=== PATIENT | male | born 1965 | race Caucasian/White ===

== ENCOUNTER → 2017-12-03 06:46 | Outpatient (CLI) | payer OTHER, SELFPAY ==
--- NOTE | 2017-12-03 06:52 | NM_ITS ---
History and Indications: Hypertension, tobacco use, shortness of breath and fatigue Procedure: Patient exercised on Lobo protocol 6 metastases and 31 seconds, resting heart rate was 58% resting blood pressure 136/76, with exercise maximum heart rate achieved was 1 51 bpm which is greater than 85% of the maximum predicted heart rate and a blood pressure was 186/76. Test was started due to shortness of breath patient denied complained of chest pain. Agitated adequate exercise capacity and achieved 7mets of workload on treadmill, the blood pressure response to exercise was adequate. Electrocardiogram: Resting electrocardiogram showed sinus rhythm nonspecific ST-T changes, with exercise there is additional [address] segment depression noted from the baseline EKG, the EKG portion of the exercise Myoview is nondiagnostic baseline abnormal EKG. Cardiac stress and resting SPECT images: Cardiac stress and rest SPECT images were obtained using technetium 99 Myoview 10.9 mCi at rest and 31.0 mCi at stress, gated SPECT further analysis of segmental wall motion and calculation of the ejection fraction also done. Cardiac stress and rest images show uniform myocardial activity without any segmental perfusion abnormality, computer derived ejection fraction is 64% with no obvious regional wall motion abnormality, right ventricle is normal size and contractility. Conclusion: 1. The EKG portion of the exercise Myoview is nondiagnostic secondary to baseline abnormal EKG. Patient has adequate exercise capacity achieved 7mets of workload on treadmill, the blood pressure response to exercise was adequate, there was no exercise-induced chest discomfort. 2. No obvious scintigraphic evidence of reversible ischemia seen at this level of exercise, computer derived ejection fraction is 64% with no obvious regional wall motion abnormality, right ventricle is normal size and contractility.
--- NOTE | 2017-12-03 10:18 | HMH.ITSHM ---
lisonopril paxil aspirin
== END ==
PROVIDERS: Family Provider Internal Medicine Adolescent Medicine; PCP Internal Medicine Adolescent Medicine; Visit Provider Nurse Practitioner Family
DX: R06.02 Shortness of breath (principal)
CPT/HCPCS: 78452; 93017; A9502

== ENCOUNTER 2018-03-07 13:00 | Outpatient (RCR) | payer OTHER, SELFPAY | END 2018-03-29 13:33 | disposition home or self-care (01) | LOC: PT 13:00 | PROVIDERS: Family Provider Internal Medicine Adolescent Medicine; PCP Internal Medicine Adolescent Medicine; Visit Provider Nurse Practitioner Family | DX: M54.31 Sciatica, right side (principal) | CPT/HCPCS: 97012; 97110; 97163 ==

== ENCOUNTER → 2021-03-05 14:00 | Outpatient (CLI) | payer OTHER, SELFPAY ==
[2021-03-05 14:12] LABS: Basophils # 0.1 K/mm3 (0-0.2); Basophils % 1.7 % (0.1-2.0); Eosinophils # 0.4 K/mm3 (0.0-0.4); Eosinophils % 4.5 % (0.1-12.0); Hematocrit 47.9 % (42.0-52.0); Hemoglobin 16.4 g/dL (14.1-18.0); Lymphocytes # 3.3 K/mm3 (0.7-4.5); Lymphocytes % 39.8 % (10-50); Mean Corpuscular HGB Conc 34.3 g/dL (31.8-35.4); Mean Corpuscular Hemoglobin 31.2 pg (27.0-31.2); Mean Platelet Volume 8.2 fl (7.4-10.4); Monocytes # 0.5 K/mm3 (0.1-1.0); Monocytes % 6.1 % (1.7-9.3); Platelet Count 275 K/mm3 (142-424); Red Blood Count 5.26 M/mm3 (4.60-6.20); Red Cell Distribution Width 12.8 % (11.5-17.5); White Blood Count 8.3 K/mm3 (4.8-10.8)
[2021-03-05 14:16] LABS: Chloride 99 mmol/L (98-107)
[2021-03-05 14:17] LABS: Potassium 4.3 mmoL/L (3.5-5.1); Sodium 136 mmol/L (136-145)
[2021-03-05 14:19] LABS: Alanine Aminotransferase 74 U/L (12-78); Albumin Level 4.3 g/dl (3.5-5.0); Albumin/Globulin Ratio 1.5 (1.1-1.8); Alkaline Phosphatase 87 U/L (38-126); Anion Gap 13.3 mEq/L (5-15); Aspartate Amino Transferase 49 U/L (17-59); Bilirubin,Total 1.1 mg/dl (0.2-1.3); Blood Urea Nitrogen 18 mg/dl (9-20); Carbon Dioxide 28 mmol/L (22.0-30.0); Cholesterol 130 mg/dl (140-200); Estimated Glomerular Filt Rate 100 ml/min (>60); GFR (African American) 121 ML/MIN (>60); Globulin 2.8 g/dL (1.3-3.2); Total Protein,Serum 7.1 g/dl (6.3-8.2); Triglycerides 190 mg/dl (30-150); VLDL Cholesterol 38 mg/dL (0-40)
[2021-03-05 14:20] LABS: Calcium 9.2 mg/dl (8.4-10.2); Chol/HDL Ratio 4.2 (1-3.5); Glucose 150 mg/dl (74-100); HDL Cholesterol 31 mg/dl (40-60)
[2021-03-05 14:31] LABS: Direct LDL Cholesterol 72.19 mg/dL (100-129)
[2021-03-05 14:50] LABS: Thyroid Stimulating Hormone 2.75 uIU/mL (0.465-4.68)
[2021-03-06 17:14] LABS: Hemoglobin A1C 6.6 % (4.0-6.0)
== END ==
PROVIDERS: Internal Medicine Adolescent Medicine; Visit Provider Nurse Practitioner Family
DX: I10 Essential (primary) hypertension (principal); E78.2 Mixed hyperlipidemia; J44.9 Chronic obstructive pulmonary disease, unspecified; R73.9 Hyperglycemia, unspecified
CPT/HCPCS: 80053; 80061; 83036; 84443; 85025

== ENCOUNTER → 2021-03-17 06:48 | Outpatient (CLI) | payer OTHER, SELFPAY ==
--- NOTE | 2021-03-17 06:54 | CT_ITS ---
PROCEDURE: CT LUNG SCREENING CLINICAL INDICATION: SMOKER Current smoker 63 pack year smoking history Low dose ca screening COMPARISON: No exams were available for comparison TECHNIQUE: The exam was performed on a GE Light Speed [address] scanner using 2.90 mGy CTDI. A low dose helical CT CHEST was performed on a multi-detector scanner. All CT scans at the facility use one or more dose reduction, viz: automated exposure control, ma/kV adjustment per patient size (including targeted exams where dose is matched to indication, i.e. head), or iterative reconstruction technique. The LDCT was performed in a facility that meets the criteria for the screening program. Data regarding this exam was submitted to ACR which is an approved registry. The order for this exam indicates that it came as a result of a lung cancer screening counseling shard decision-making visit that included all the elements required of such a visit including smoking cessation. The radiologist interpreting this exam meets the CMS criteria for the LDCT lung cancer screening program. The exam is reported using the Lung-RADS classification scale and reported to the ACR registry. NOTE: This study was performed for the specific purposes of lung cancer screening and is not an alternative to diagnostic chest CT. RADIATION DOSE: CTDI vol(CT dose Index-volume) = 2.90mG DLP (Dose Length Product) = 118.55 mGcm FINDINGS: COPD changes with evidence of old granulomatous disease. No suspicious nodules apparent. OTHER FINDINGS: There are few mildly prominent mediastinal lymph nodes measuring up to 1.91.4 cm in the precarinal region with some calcification noted in subcarinal and right hilar nodes. Coronary artery calcifications are present. The liver appears enlarged measuring up to 27 cm AP. There are degenerative changes in the thoracic spine. IMPRESSION: Lung-RADS Category 1 Negative Follow-up: Continue annual screening with LDCT in 12 months Dictated by: Jarett Field MD 03/24/2021 09:57 Jarett Field MD in [place] 03/24/2021 09:57
== END ==
PROVIDERS: PCP Nurse Practitioner Family; Visit Provider Nurse Practitioner Family
DX: Z87.891 Personal history of nicotine dependence (principal); Z12.2 Encounter for screening for malignant neoplasm of respiratory organs
CPT/HCPCS: 71271

== ENCOUNTER → 2021-07-16 16:50 | Outpatient (CLI) | payer OTHER, SELFPAY ==
[2021-07-16 17:35] LABS: Anion Gap 15.1 mEq/L (5-15); Blood Urea Nitrogen 10 mg/dl (9-20); Calcium 9.7 mg/dl (8.4-10.2); Carbon Dioxide 29 mmol/L (22.0-30.0); Chloride 99 mmol/L (98-107); Chol/HDL Ratio 3.1 (1-3.5); Cholesterol 102 mg/dl (140-200); Estimated Glomerular Filt Rate 117 ml/min (>60); GFR (African American) 141 ML/MIN (>60); Glucose 131 mg/dl (74-100); HDL Cholesterol 33 mg/dl (40-60); Potassium 5.1 mmoL/L (3.5-5.1); Sodium 138 mmol/L (136-145); Triglycerides 143 mg/dl (30-150); VLDL Cholesterol 29 mg/dL (0-40)
[2021-07-16 18:24] LABS: Hemoglobin A1C 6.8 % (4.0-6.0)
== END ==
PROVIDERS: Visit Provider Nurse Practitioner Family
DX: E11.9 Type 2 diabetes mellitus without complications (principal); E78.2 Mixed hyperlipidemia
CPT/HCPCS: 80048; 80061; 83036

== ENCOUNTER 2021-08-11 10:31 | Observation (INO) | payer OTHER, SELFPAY ==
[2021-08-11] VITALS (19 sets, daily range): BP systolic 94–169; BP diastolic 49–100; PULSE 78–115; RESP 20–24; TEMP 36.6–37.1; O2SAT 86–97; BMI 38.0; BMI 38.2
--- NOTE | 2021-08-11 | IR_ITS ---
APPROVED REPORT Patient Location: Emergent Acid Painter: SALVADOR Pedro RT (R) PROCEDURES Left heart catheterization Left ventriculogram Selective coronary angiogram INDICATION Acute non-ST elevation myocardial infarction Informed consent was obtained prior to the procedure. COMPLICATIONS NONE Estimated Blood Loss: LESS THAN 10 ML TECHNIQUE One percent lidocaine used to anesthetize the right anterior aspect of the wrist. The right radial artery was accessed via the Seldinger technique. A 6 Irish sheath was placed in the right radial artery. 2.5 mg of verapamil, 800 mcg of nitroglycerin, 1mg Lidocaine and 5000 U Heparin were given through the arterial sheath. The Poppa 1 catheter was also used to perform left heart catheterization, left ventriculogram and selective coronary angiogram. At the end of the procedure the sheath was removed good hemostasis was achieved using Traclet band, patient was transferred to the postop holding area in stable condition. ANGIOGRAPHIC RESULTS The left main artery Normal The left anterior descending artery Normal The circumflex artery Normal The right coronary artery Dominant mild luminal irregularities 10% The TOMPKINS ventriculogram reveals Hyperdynamic 70 to 75% with mild to moderate apical hokum The left ventricular end-diastolic pressure Severely elevated at 40 mmHg IMPRESSION Nonflow limiting coronary disease Apical hypertrophic obstructive cardiomyopathy Severely elevated LVEDP PLAN 1. Recommend transthoracic echocardiogram to better delineate left ventricle and consider LOLA based on patient's body habitus 2. Treat diastolic dysfunction with diuretics and weight loss 3. Recommend sleep study 4. Recommend pulmonary CTA to evaluate for possible pulmonary embolism 5. Risk factor modification Electronically signed by : El Mccullough MD 08/11/2021 12:55:10
--- NOTE | 2021-08-11 11:41 | HMH.EDGENADL ---
ED Disposition Clinical Impression: NSTEMI (non-ST elevated myocardial infarction), Strep pharyngitis Disposition: Admitted As Inpatient Condition on Discharge: Good Referrals: Provider,Referral, [Primary Care Provider] - - Critical Care Critical Care Time: No Attestation: On 08/11/21, the high probability of a clinically significant, sudden or life threatening deterioration of the following system(s) required my full and direct attention, intervention and personal management. The time I documented below is in addition to time spent performing reported procedures but includes the following listed in this critical care notation. Medical Decision Making - Medical Records Medical records reviewed: Yes: I reviewed the patient's medical records. - Mukul Inquiry Pt receiving controlled substance: No Vital Signs: 08/11/21 10:31 Pulse Rate [Left Radial] 115 H Respiratory Rate 20 Blood Pressure [Right Arm] 156/79 H Blood Pressure Mean [Right Arm] 104 Blood Pressure Source [Right Arm] Automatic Cuff Blood Pressure Position [Right Arm] Sitting 02 Sat by Pulse Oximetry 95 Oxygen Delivery Method Room Air Orders (Tests/Meds): ORDERS Category Date Time Status Rapid PCR Covid and Flu A/B Stat Lab 08/11/21 10:33 Ordered - ZEINA Score for Non-Stemi Age of Patient: 50-59 years old Heart Rate: 110-149 bpm Systolic Blood Pressure: 140-159 mmHg Serum Creatinine: <0.40 mg/dl CHF Killip Class: I-No CHF Other Risk Factors: ST Segment Deviation Non-Stemi Risk Score: 118 Risk Stratification: 109-140 = Intermediate Ri Medical Decision Narrative: 56-year-old male presented to the emergency department with some chest discomfort. History of CAD. Find consistent with unstable angina. Patient is being prepared for transfer to the catheterization lab for intervention. Admit to the hospital post catheterization. General Adult HPI - General Chief complaint: Recheck/Abnormal Lab/Rx Stated complaint: heart cath Time Seen by Provider: 08/11/21 10:40 Mode of Arrival: Ambulatory Limitations: No Limitations Description of Symptoms (Recalled from ER Triage Doc. by RN): pt sent over from [facility] for further evaluation by cardiology. - History of Present Illness HPI narrative: 56-year-old male presented to the emergency department transferred in from [facility]. The patient is a longstanding history of CAD. Complaining some chest pain over the last few days. Patient was found to have a NSTEMI. Dr. Mccullough is his primary transitional kindergarten teacher was notified. Patient is had persistent unstable angina and does require heart catheterization. Patient states that his pain is slightly improved, however still there. Also complained of sore throat. Denies any headache or change in vision. No focal weakness. No abdominal pain or vomiting. - Related Data Allergies Allergy/AdvReac Type Severity Reaction Status Date / Time PENICILLIN Allergy Intermediate I-HIVES Uncoded 09/14/17 15:07 [facility] History - Hepatitis A Screen Drug use history?: No High risk sexual behaviors?: No History of sexually transmitted infection?: No Currently employed?: No Childcare worker?: No Do you have indoor plumbing?: Yes Do you have electricity?: Yes Attestation statement:: This patient has been screened for Hepatitis A risk factors. I have reviewed the patient's past medical history: Yes ROS Obtained: Yes All systems reviewed & no additional complaints - Constitutional Constitutional: Denies chills, Denies fever(s) - ENT Ears, Nose, Mouth, and Throat: Reports sore throat - Cardiovascular Cardiovascular: Reports chest pain - Respiratory Respiratory: Denies dyspnea - Gastrointestinal Gastrointestingal: Denies: vomiting - Musculoskeletal Musculoskeletal: Denies joint pain, Denies joint swelling - Integumentary/Breasts Skin/Breast: Denies rash - Neurologic Neurologic: Denies headache(s) Physical Exam
[2021-08-11 11:56] LABS: Coronavirus 19, PCR Not Detected (NotDetected); Influenza A, PCR Not Detected (NotDetected); Influenza B, PCR Not Detected (NotDetected)
--- NOTE | 2021-08-11 12:55 | CT_ITS ---
PROCEDURE: CT ANGIO CHEST PE PROTOCOL CLINCIAL INDICATION: PULMONARY ARTERY CTA COMPARISON: CT CT LUNG SCREENING from 03/17/2021 TECHNIQUE: IV Contrast: 70ML Isovue 370 Axial images obtained with sagittal and coronal reformats. All CT scans at the facility use one or more dose reduction, viz: automated exposure control, ma/kV adjustment per patient size (including targeted exams where dose is matched to indication, i.e. head), or iterative reconstruction technique. FINDINGS: HEART AND MEDIASTINAL STRUCTURES: Peripheral pulmonary artery opacification is somewhat less than optimal due to motion artifact and bolus timing. No central pulmonary embolus apparent. Scattered mildly prominent mediastinal lymph nodes not significantly changed LUNGS AND PLEURAL SPACES: No lobar consolidation or collapse. Motion artifact obscures fine detail. There is evidence of old granulomatous disease. Scattered areas of scarring. BONY STRUCTURES: There are degenerative changes in the thoracic spine with prominent osteophytes and DISH of the mid thoracic spine. Scattered areas of sclerosis involves the T5, T6, T7, T8, T9, and T10 vertebral bodies. This is of uncertain etiology possibly hemangiomatous involvement versus posttraumatic changes. Nonemergent MRI of the thoracic spine may provide further evaluation. UPPER ABDOMEN: Fatty liver. Scattered small celiac and portal nodes ADDITIONAL FINDINGS: No other significant abnormalities. IMPRESSION: 1. No large or central pulmonary embolus evident. Peripheral pulmonary artery opacification is somewhat less than optimal due to motion artifact and bolus timing. 2. Degenerative changes of the thoracic spine with multiple vertebral body areas of sclerosis and lucency etiology indeterminate possibly due to hemangioma involvement. Nonemergent MRI of the thoracic spine without and with contrast may provide further evaluation. DISH of the thoracic spine. Dictated by: Jarett Field MD 08/11/2021 14:21 Jarett Field MD in [place] 08/11/2021 14:21
--- NOTE | 2021-08-11 13:28 | SUR.PHASEII ---
pt to CT per crystal before going to 2nd floor. pt stable.
--- NOTE | 2021-08-11 13:43 | P.CONPHA_ITS ---
[facility] Pharmacy VTE Monitoring - Patient Demographics Admission date: 08/11/21 Report Date: 08/11/21 Time: 13:43 Allergies/Adverse Reactions: Patient Allergies PENICILLIN Allergy (Intermediate, Uncoded 09/14/17 15:07) I-HIVES Height: 1.75 m Weight: 117.027 kg Patient Problems: Current Active Problems NSTEMI (non-ST elevated myocardial infarction) (Acute) Strep pharyngitis (Acute) - VTE Risk Clinical Trial Participant: No - Prophylaxis VTE Prophylaxis Ordered?: Yes Types of VTE Prophylaxis: TEDS Knee High
--- NOTE | 2021-08-11 16:59 | HMH.HPDC ---
General - General Admission date:: 08/11/21 Discharge date: 08/11/21 *Admission Date: 08/11/21 *Chief complaint: Chest pain/shortness of air *History of present illness: 56-year-old white male with diabetes, hypertension and diastolic CHF who went to the [facility] emergency room with a feeling of coughing, shortness of air and sore throat. Found to have a positive strep test, but was also found to have elevated cardiac enzymes and was diagnosed with a non-STEMI, transferred to the [facility] where he was taken to the Bench Assembl[facility] Operator earlier today. Bench Assembler [facility] results are noted in his hospital course. [facility] History I have reviewed the patient's past medical history: Yes Medical History: Reports:: Congestive Heart Failure, Chronic Obstructive Pulmonary Disease (COPD), Diabetes Mellitus Type 2, Heart Murmur, Hypertension *Have you ever received a pneumonia vaccine?: No *Have you received a flu vaccine this season?: No - *Social History Last grade of school completed: High school graduate Smoking Status: Current some day smoker Tobacco Type: cigarettes Alcohol Intake: never *Occupational Status:: employed *Travel in the last 8 weeks: None Family Hx:: No significant family history Review of Systems - Review of Systems Review of systems:: pertinent systems reviewed and negative unless documented below - *Neurologic Denies headache(s) Exam Vital signs and Labs for Last 24 Hours: Temp Pulse Resp BP Pulse Ox 98.2 F 103 H 20 140/75 94 L 08/11/21 13:40 08/11/21 13:40 08/11/21 13:40 08/11/21 13:40 08/11/21 13:40 Laboratory Results - last 24 hr 08/11/21 11:45: SARS-CoV-2 (PCR) Not detected, Influenza A Untype (PCR) Not detected, Influenza Type B (PCR) Not detected I & O for Last 24 hours: Intake & Output 08/09/21 08/10/21 08/11/21 08/12/21 11:59 11:59 11:59 11:59 Weight 258 lb 258 lb 0.006 oz - Constitutional no acute distress - *Routine HEENT Exam Head: Present: normocephalic Eye: Present: EOMI, PERRL ENT: Present: mucous membranes moist Comments: Red throat noted, tender cervical lymph nodes - *Routine Neck Exam Present: supple. Absent: lymphadenopathy - *Routine Respiratory Exam Present: CTA bilaterally - *Routine Cardiovascular Exam Present: RRR - *Routine Abdominal Exam Present: soft, normoactive bowel sounds. Absent: tenderness - *Routine Rectal Exam Rectal:: deferred - *Routine Genitalia Exam Genitalia:: deferred - *Routine Extremities Exam Absent: cyanosis, clubbing, edema - *Routine Skin Exam Present: warm. Absent: rash - *Routine Neurological Exam Present: alert, oriented X3 Hospital Course Hospital Course: Patient was admitted observation, underwent left heart catheterization: Results below: ANGIOGRAPHIC RESULTS The left main artery Normal The left anterior descending artery Normal The circumflex artery Normal The right coronary artery Dominant mild luminal irregularities 10% The TOMPKINS ventriculogram reveals Hyperdynamic 70 to 75% with mild to moderate apical hokum The left ventricular end-diastolic pressure Severely elevated at 40 mmHg IMPRESSION Nonflow limiting coronary disease Apical hypertrophic obstructive cardiomyopathy Severely elevated LVEDP PLAN 1. Recommend transthoracic echocardiogram to better delineate left ventricle and consider LOLA based on patient's body habitus 2. Treat diastolic dysfunction with diuretics and weight loss 3. Recommend sleep study 4. Recommend pulmonary CTA to evaluate for possible pulmonary embolism 5. Risk factor modification Patient did well post cath. CTA was negative for PE. He feels good this now, wishes to be discharged home. Is willing to come in for short-term follow-up. Plan will be to discharge home with clindamycin for strep throat given his allergy profile, short-term follow-up in 2 days, will start Lasix based on cardiology recommendations. Results Lab
== END 2021-08-11 18:14 | disposition home or self-care (01) ==
LOC: ER 11:44 → 2ND 17:05
PROVIDERS: Internal Medicine; Admitting Provider Family Medicine; Emergency Provider Emergency Medicine; Visit Provider Family Medicine
DX: I21.4 Non-ST elevation (NSTEMI) myocardial infarction (principal); I50.30 Unspecified diastolic (congestive) heart failure; I11.0 Hypertensive heart disease with heart failure; F17.210 Nicotine dependence, cigarettes, uncomplicated; J02.0 Streptococcal pharyngitis; I42.9 Cardiomyopathy, unspecified
CPT/HCPCS: 71275; 93458; 99152; 99283; C1725; C1760; C1769; C9803; G0378; J1644; Q9967; U0003; U0005

== ENCOUNTER 2021-08-17 11:30 | Emergency (ER) | payer OTHER, SELFPAY ==
[2021-08-17] VITALS (7 sets, daily range): BP systolic 102–130; BP diastolic 60–68; PULSE 64–104; RESP 16–26; TEMP 36.9–37; O2SAT 94–98; BMI 36.9; BMI 22.1
--- NOTE | 2021-08-17 11:30 | ECG_ITS ---
APPROVED REPORT Exam: Resting ECG HR:83 bpm ECG Measurements Heart Rate 83 AXES PA 166 P 53 QRSd 72 QRS 69 QT 318 T 31 QTc 373 Conclusion Normal sinus rhythm Nonspecific T wave abnormality Abnormal ECG Electronically signed by : Leland New MD 08/17/2021 15:34:26
--- NOTE | 2021-08-17 11:39 | XR_ITS ---
PROCEDURE INFORMATION: Exam: XR Chest Exam date and time: 08/17/2021 11:39 AM Age: 56 years old Clinical indication: Cough TECHNIQUE: Imaging protocol: XR of the chest. Views: 1 view. COMPARISON: CT ANGIO CHEST PE PROTOCOL 08/11/2021 1:29 PM FINDINGS: Lungs: No focal right lung consolidation; left lower lobe is obscured which appeared to be due to an epicardial fat pad on the CT of 08/11/2021. Central bronchial wall thickening. Pleural spaces: No right pleural effusion. Left costophrenic sulcus is obscured. Heart/Mediastinum: No significant enlargement of the cardiomediastinal silhouette. Bones/joints: Degeneration is seen in the right shoulder. IMPRESSION: No acute findings although left lower lobe is obscured; probably by an epicardial fat pad although lateral chest x-ray would be helpful for further evaluation.
--- NOTE | 2021-08-17 11:42 | HMH.EDGENADL ---
ED Disposition Clinical Impression: Shortness of breath, Anxiety state Disposition: Home, Self-Care Condition on Discharge: Good Instructions: DI for Shortness of Breath, DI for Anxiety -- Adult Additional Instructions: See Dr. New in his [place] office tomorrow at noon. Take Klonopin as needed for anxiety. Additional instructions for SHORTNESS OF BREATH: See your physician as soon as possible for further evaluation. Return immediately if worsening shortness of breath or if vomiting, chest pain, fever, coughing of blood, or passing out. Additional instructions for CONTROLLED SUBSTANCES: You have been prescribed a medication that is a controlled substance. Controlled substances include pain medications known as opiates and sedative nerve medications known as benzodiazepines. Tramadol, fioricet, and gabapentin are also controlled substances. Some common opiates include: Codeine (such as Tylenol #3) Hydrocodone (Vicodin, Lortab, Lorcet, [place]) Oxycodone (Percocet, Percodan, Oxycodone, Oxy IR) Some common benzodiazepines include: Diazepam (Valium) Lorazepam (Ativan) Alprazolam (Xanax) Clonazepam (Klonopin) Oxazepam (Serax) All of these controlled substances are highly addictive and frequently abused. Misuse can and frequently does lead to addiction as well as overdose and . Medication should be stored in a locked cabinet or other secure storage unit. Do not store the medication in a motor vehicle. Short term supplies, 3 days or less, are prescribed because of the highly addictive nature of the medication. Any of the controlled substance medication NOT taken should be disposed of properly and NOT SAVED. The recommended method of disposing of unused medications is: Place the medicines in a sealable plastic bag. If the medicine is a solid, crush it or add water to dissolve it. Add something undesirable (cat litter, coffee grounds, etc.) Dispose of sealed bag in household trash Do not flush or pour unused medicines down a sink or drain. Controlled substances should not be shared, given away or sold. Because of the addictive nature and frequent abuse, these medications are sometimes stolen. These medications should be kept in a safe place where they cannot be stolen. Do not keep them in your car or purse. Lost or stolen prescriptions for controlled substances WILL NOT BE REFILLED in this emergency department, regardless of whether a police report was filed. Prescriptions: clonazePAM [Klonopin] 1 mg PO Q8HP PRN #3 tablet PRN Reason: Anxiety Transmission Status: Sent to [id number] Referrals: Provider,Referral, [Primary Care Provider] - - Critical Care Critical Care Time: No Attestation: On , the high probability of a clinically significant, sudden or life threatening deterioration of the following system(s) required my full and direct attention, intervention and personal management. The time I documented below is in addition to time spent performing reported procedures but includes the following listed in this critical care notation. Medical Decision Making - Medical Records Medical records reviewed: Yes: I reviewed the patient's medical records. MR Comment: Reviewed hospital records from visit on 08/11/2021. Reviewed angiogram report, CT angiogram of chest. See below. No EKGs could be found from that visit. No troponin levels found. Records requested from [facility]. Obtained emergency department records from [facility]. EKG is unchanged from that visit. His reported troponin was 89.3 with a normal of 75. - Mukul Inquiry Pt receiving controlled substance: No Vital Signs: 08/17/21 11:36 08/17/21 12:31 08/17/21 13:01 Temperature 98.6 F Temperature Source Oral Pulse Rate 101 H 97 H Pulse Rate [Radial] 104 H Respiratory Rate 26 H 22 24 Blood Pressure 124/60 130/66 Blood Pressure [Right Radial Artery] 107/65 L
[2021-08-17 12:07] LABS: Coronavirus 19, PCR Not Detected (NotDetected); Influenza A, PCR Not Detected (NotDetected); Influenza B, PCR Not Detected (NotDetected)
[2021-08-17 12:10] LABS: Basophils # 0.1 K/mm3 (0-0.2); Basophils % 1.6 % (0.1-2.0); Eosinophils # 0.3 K/mm3 (0.0-0.4); Eosinophils % 3.4 % (0.1-12.0); Hematocrit 50.2 % (42.0-52.0); Hemoglobin 17.1 g/dL (14.1-18.0); Lymphocytes % 36.3 % (10-50); Mean Corpuscular HGB Conc 34.1 g/dL (31.8-35.4); Mean Corpuscular Hemoglobin 31.9 pg (27.0-31.2); Mean Corpuscular Volume 93.5 fl (80-94); Mean Platelet Volume 8.1 fl (7.4-10.4); Monocytes # 0.4 K/mm3 (0.1-1.0); Monocytes % 5.1 % (1.7-9.3); Neutrophils # 4.4 K/mm3 (1.8-7.8); Neutrophils % 53.5 % (37.0-80.0); Platelet Count 353 K/mm3 (142-424); Red Blood Count 5.37 M/mm3 (4.60-6.20); Red Cell Distribution Width 12.8 % (11.5-17.5); White Blood Count 8.2 K/mm3 (4.8-10.8)
[2021-08-17 12:29] LABS: Anion Gap 11.8 mEq/L (5-15); Blood Urea Nitrogen 15 mg/dl (9-20); Calcium 9.6 mg/dl (8.4-10.2); Carbon Dioxide 33 mmol/L (22.0-30.0); Chloride 97 mmol/L (98-107); Creatinine Clearance Estimated 113 mL/min (50-200); Estimated Glomerular Filt Rate 117 ml/min (>60); GFR (African American) 141 ML/MIN (>60); Glucose 178 mg/dl (74-100); Potassium 3.8 mmoL/L (3.5-5.1); Sodium 138 mmol/L (136-145)
[2021-08-17 12:42] LABS: NT Pro Brain Natriuretic Pep. 14.4 pg/mL (0-125)
--- NOTE | 2021-08-17 12:49 | CT_ITS ---
PROCEDURE INFORMATION: Exam: CTA Chest With Contrast Exam date and time: 08/17/2021 12:49 PM Age: 56 years old Clinical indication: Shortness of breath; Additional info: SOA, elev d-dimer TECHNIQUE: Imaging protocol: Computed tomographic angiography of the chest with contrast. 3D rendering (Not supervised by radiologist): MIP and/or 3D reconstructed images were created by the technologist. Radiation optimization: All CT scans at this facility use at least one of these dose optimization techniques: automated exposure control; mA and/or kV adjustment per patient size (includes targeted exams where dose is matched to clinical indication); or iterative reconstruction. Contrast material: ISOVUE; Contrast volume: 70 ml; Contrast route: INTRAVENOUS (IV); COMPARISON: CT ANGIO CHEST PE PROTOCOL 08/11/2021 1:29 PM FINDINGS: Pulmonary arteries: There is no evidence of filling defects within the pulmonary arterial circulation to suggest pulmonary embolism. Aorta: No aneurysmal dilatation of thoracic aorta or dissection. There is minimal atheromatous plaque. Lungs: There is central bronchial wall thickening. No lung consolidation. Pleural spaces: No pneumothorax. No pleural effusion. Heart: No cardiomegaly or pericardial effusion. There is a large epicardial fat pad. Lymph nodes: There are multiple mediastinal and hilar lymph nodes largest is pretracheal measuring 1.8 cm. Several contain calcifications therefore likely old granulomatous disease. Additionally there are calcified lung parenchymal granulomas largest in the right lower lobe. There are calcified granulomas in the liver and spleen as well. Liver: There is hepatomegaly with right lobe measuring 23 cm. Bones/joints: Spondylosis in the thoracic spine with multilevel fusion. Soft tissues: Large epicardial fat pad. IMPRESSION: No acute findings. No evidence of pulmonary emboli or pneumonia.
[2021-08-17 12:53] LABS: Troponin I < 0.01 ng/ml (0.00-0.034)
[2021-08-17 13:52] LABS: Adenovirus,PCR Not Detected (NotDetected); Bordetella Pertussis Not Detected (NotDetected); Chlamydophila Pneumoniae, PCR Not Detected (NotDetected); Coronavirus 19, PCR Not Detected (NotDetected); Coronavirus 229E Not Detected (NotDetected); Coronavirus NL63 Not Detected (NotDetected); Coronavirus OC43 Not Detected (NotDetected); Coronovirus HKU1,PCR Not Detected (NotDetected); Human Metapneumovirus Not Detected (NotDetected); Influenza A, PCR Not Detected (NotDetected); Influenza AH1, 2009 Not Detected (NotDetected); Influenza AH1, PCR Not Detected (NotDetected); Influenza AH3,PCR Not Detected (NotDetected); Influenza B, PCR Not Detected (NotDetected); Mycoplasma Pneumoniae, PCR Not Detected (NotDetected); Parainfluenza 1, PCR Not Detected (NotDetected); Parainfluenza 2, PCR Not Detected (NotDetected); Parainfluenza 3, PCR Not Detected (NotDetected); Parainfluenza 4, PCR Not Detected (NotDetected); Respiratory Syncytial Virus Not Detected (NotDetected)
[2021-08-17 13:58] LABS: Rhinovirus/Enterovirus Detected (NotDetected)
--- NOTE | 2021-08-17 14:59 | PC.NURSE ---
DR CARLOS PAULINO
[2021-08-17 15:14] LABS: Troponin I < 0.01 ng/ml (0.00-0.034)
== END 2021-08-17 16:27 | disposition home or self-care (01) ==
PROVIDERS: Emergency Provider Emergency Medicine
DX: B34.8 Other viral infections of unspecified site (principal); R73.9 Hyperglycemia, unspecified; F17.210 Nicotine dependence, cigarettes, uncomplicated; Z88.0 Allergy status to penicillin
CPT/HCPCS: 36415; 71045; 71275; 80048; 83880; 84484; 85025; 85378; 87581; 87632; 87798; 93005; 99283; C9803; Q9967; U0003; U0005

== ENCOUNTER → 2021-09-03 10:04 | Outpatient (CLI) | payer OTHER, SELFPAY ==
--- NOTE | 2021-09-03 | CA_ITS ---
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) Ht: 5 ft 8 in Wt: 150lbs BSA: 1.81 BP: 130/66 mmHg Indications: HTN, COPD, murmur, smoker, DM, hyperlipidemia, CHF, cath 08/11/21 2D Dimensions LVOT 1.83 cm (M/F) 1.5-2.5 M-Mode Dimensions RVDd 3.10 cm (0.9-2.6) LA Diam 3.53 cm (1.9-4.0) LVDd 4.93 cm (3.5-5.7) Ao Diam 2.45 cm (2.0-3.7) LVDs 3.57 cm (3.5-5.7) IVSd 1.13 cm (0.6-1.1) PWd 0.84 cm (0.6-1.1) EF (Teich) 53.40% FS 27.60% EDV (Teich) 114.40 mL ESV (Teich) 53.30 mL LV Diastology E Decel Time 207.00 (160-240 msec) E/A Ratio 0.9 MED E' 9.30 (< 7 cm/sec) E'/MED E' Ratio 8.22 (>14) LAT E' 10.20 (<10 cm/sec) E/LAT E' Ratio 7.49 (>14) Mitral Valve MV E Max Lopez. 76.00 (40-130 cm/s) MV A Velocity 85.00 (40-130 cm/s) E/A Ratio 0.90 MV Decel. Time 207.00 (160-240 ms) MV PHT 61.00 ms Left Ventricle Left atrium is mildly enlarged, left ventricle is normal size, mild concentric left ventricular hypertrophy, visually estimated ejection fraction 55% with no regional wall motion abnormality, grade 1 diastolic dysfunction seen without tissue Doppler evidence of raise left atrial pressure. Right Ventricle Right atrium and right ventricle are mildly enlarged with normal contractility. Aortic Valve Aortic valve is minimally thickened and fibrosed, there is no aortic stenosis or aortic insufficiency. Mitral Valve Mitral valve is grossly normal, there is trace mitral regurgitation. Tricuspid Valve Tricuspid valve grossly normal, there is trace tricuspid regurgitation, tricuspid regurgitation jet velocity is inadequate for calculation of the right ventricular systolic pressure Pulmonic Valve Pulmonic valve is poorly visualized. Great Vessels Aortic root is normal size. Inferior vena cava is normal size with normal inspiratory collapse. Pericardium No significant pericardial effusion noted. Conclusion 1. Mild biatrial enlargement, normal left ventricular size, mild concentric left ventricular hypertrophy, visually estimated ejection fraction 55% with no regional wall motion abnormality, grade 1 diastolic dysfunction seen without tissue Doppler evidence of raise left atrial pressure. 2. Mildly enlarged right ventricle with normal contractility. 3. Trace mitral and tricuspid regurgitation. 4. No significant pericardial effusion. 5. Inferior vena cava is normal size with normal inspiratory collapse. Electronically signed by : Ritchie Michael MD 09/03/2021 20:34:27
== END ==
PROVIDERS: PCP Internal Medicine Adolescent Medicine; Visit Provider Nurse Practitioner Family
DX: R06.02 Shortness of breath (principal); I42.1 Obstructive hypertrophic cardiomyopathy
CPT/HCPCS: 93306; Q9957

== ENCOUNTER 2023-08-15 21:06 | Emergency (ER) | payer MEDICARE, OTHER, SELFPAY ==
[2023-08-15 21:07] VITALS: BP 187/87; PULSE 94; RESP 20; TEMP 37.1; O2SAT 98; BMI 33.0
--- NOTE | 2023-08-15 21:16 | CT_ITS ---
PROCEDURE INFORMATION: Exam: CT Abdomen And Pelvis With Contrast Exam date and time: 08/15/2023 9:48 PM Age: 58 years old Clinical indication: Abdominal pain; Additional info: Ruq/rlq pain TECHNIQUE: Imaging protocol: Computed tomography of the abdomen and pelvis with contrast. Radiation optimization: All CT scans at this facility use at least one of these dose optimization techniques: automated exposure control; mA and/or kV adjustment per patient size (includes targeted exams where dose is matched to clinical indication); or iterative reconstruction. Contrast material: ISOVUE; Contrast volume: 75 ml; Contrast route: IV; REPORTING DATA: Count of CT and Cardiac NM exams in prior 12 months: This patient has received 0 known CTs and 0 known cardiac nuclear medicine studies in the 12 months prior to the current study. COMPARISON: CT ANGIO CHEST PE PROTOCOL 08/17/2021 1:59 PM FINDINGS: Lungs: Right lower lobe calcified granuloma. Liver: Punctate calcified granulomas in the liver. No hepatomegaly. Gallbladder and bile ducts: Status post cholecystectomy. No significant biliary ductal dilitation. Pancreas: Minimal fat stranding adjacent to the pancreatic head is suspicious for acute pancreatitis. No evidence of pancreatic necrosis. Spleen: Calcified granulomas in the spleen. No splenomegaly. Adrenal glands: Normal. No mass. Kidneys and ureters: Normal. No hydronephrosis. Stomach and bowel: Unremarkable. No obstruction. No mucosal thickening. Appendix: Normal appendix is seen. Intraperitoneal space: Unremarkable. No free air. No significant fluid collection. Vasculature: Moderate atherosclerotic disease without aneurysm. Lymph nodes: Unremarkable. No enlarged lymph nodes. Urinary bladder: Unremarkable as visualized. Reproductive: Mild prostate enlargement. Bones/joints: [id number] lumbar spine degenerative change. Under at right hip and mild left hip degenerative change. Small sclerotic lesion in the right iliac wing is likely a bone island. Soft tissues: Unremarkable. IMPRESSION: Minimal fat stranding adjacent to the pancreatic head is suspicious for acute pancreatitis. No evidence of pancreatic necrosis.
--- NOTE | 2023-08-15 21:19 | HMH.EDGENADL ---
Discharge Plan Disposition Patient Disposition: Home, Self-Care Prescriptions Prescriptions: New ondansetron HCl 4 mg tablet 4 mg PO Q8H PRN (Reason: nausea and vomiting) 5 Days Qty: 30 0RF No Action hydrochlorothiazide 12.5 mg tablet 12.5 mg PO DAILY metformin 500 mg tablet 500 mg PO BID lisinopril 20 mg tablet 20 mg PO DAILY atorvastatin 20 mg tablet 20 mg PO DAILY Anoro Ellipta 62.5-25 mcg/actuation blister with device 1 inh INHALATION DAILY albuterol sulfate [ProAir HFA] 90 mcg/actuation HFA aerosol inhaler 2 puff INHALATION ONCE PRN Referrals Follow up/Referrals: Leland New MD [Primary Care Provider] - See instructions Activity Restrictions/Add. Instructions Additional Instructions/Restrictions: Your work-up shows mild pancreatitis. Please follow-up with your primary care provider. Please return to the emergency department if you develop any new or worsening symptoms or become concerned for your health. Please take Zofran as needed for nausea and vomiting. Clinical Impressions Clinical Impression: Acute pancreatitis, Abdominal pain Discharge ED Provider: Robin Cadet General Adult HPI <Boone Ortiz MD - Last Filed: 08/15/23 22:49> General Chief complaint: Abdominal Pain Stated complaint: upper abd pain Time Seen by Provider: 08/15/23 21:11 Mode of Arrival: Ambulatory Source of Information: Patient Limitations: No Limitations Description of Symptoms (Recalled from ER Triage Doc. by RN): Patient reports RUQ pain starting 3-4 days ago. Patient reports he still has his appendix. No vomiting, no problems with bowel movements at this time, denies dysuria. Patient reports no other symptoms than pain at this time. History of Present Illness HPI narrative: Patient is a 58-year-old with past medical history of [id number] diabetes, hypertension, hyperlipidemia who presents emergency department for evaluation abdominal pain. Onset was acute, over the last 3 to 4 days, right hemiabdominal, moderate to severe in intensity. No dysuria. Patient has previous cholecystectomy. Due to persistent symptoms he presents here for continued evaluation. No nausea or vomiting. Related Data Home Medications Medication Instructions Recorded Confirmed albuterol sulfate 90 mcg/actuation 2 puff inhalation ONCE PRN 09/15/21 09/15/21 aerosol inhaler (ProAir HFA) atorvastatin 20 mg tablet 20 mg PO DAILY 09/15/21 09/15/21 hydrochlorothiazide 12.5 mg tablet 12.5 mg PO DAILY 09/15/21 09/15/21 lisinopril 20 mg tablet 20 mg PO DAILY 09/15/21 09/15/21 metformin 500 mg tablet 500 mg PO BID 09/15/21 09/15/21 umeclidinium 62.5 mcg-vilanterol 1 inh inhalation DAILY 09/15/21 09/15/21 25 mcg/actuation powdr for inhalation (Anoro Ellipta) Previous Rx's Medication Instructions Recorded ondansetron HCl 4 mg tablet 4 mg PO Q8H PRN nausea and 08/15/23 vomiting 5 days #30 tabs Allergies Allergy/AdvReac Type Severity Reaction Status Date / Time cefazolin [From [facility]] Allergy Rash Verified 09/15/21 11:27 PENICILLIN Allergy Intermediate I-HIVES Uncoded 09/14/17 15:07 [facility] <Boone Ortiz MD - Last Filed: 08/15/23 22:49> [facility] Disclaimer: The information contained in this section may have been updated after the patient was seen, as this information can be updated by other users. Medical History (Updated 08/15/23 @ 22:49 by Boone Ortiz MD) Abnormal EKG CAD (coronary artery disease) HLD (hyperlipidemia) HTN (hypertension) Obesity (BMI 35.0-39.9 without comorbidity) Tobacco dependence syndrome Social History Smoking Status: Current every day smoker tobacco type: cigarettes alcohol intake: never substance use type: denies use current occupational status: employed Travel in the last 8 weeks: Inside the [place] <Boone Ortiz MD - Last Filed: 08/15/23 22:49> ROS Obtained: Yes Systems reviewed as appropriate & no additiona
[2023-08-15 21:27] LABS: Basophils # 0.1 K/mm3 (0-0.2); Basophils % 1.4 % (0.1-2.0); Eosinophils # 0.4 K/mm3 (0.0-0.4); Eosinophils % 4.4 % (0.1-12.0); Hematocrit 52.3 % (42.0-52.0); Hemoglobin 17.5 g/dL (14.1-18.0); Lymphocytes # 3.6 K/mm3 (0.7-4.5); Lymphocytes % 38.5 % (10-50); Mean Corpuscular HGB Conc 33.5 g/dL (31.8-35.4); Mean Corpuscular Hemoglobin 31.4 pg (27.0-31.2); Mean Corpuscular Volume 93.8 fl (80-94); Mean Platelet Volume 7.3 fl (7.4-10.4); Monocytes # 0.5 K/mm3 (0.1-1.0); Monocytes % 5.7 % (1.7-9.3); Neutrophils # 4.6 K/mm3 (1.8-7.8); Neutrophils % 50.1 % (37.0-80.0); Platelet Count 281 K/mm3 (142-424); Red Blood Count 5.57 M/mm3 (4.60-6.20); White Blood Count 9.3 K/mm3 (4.8-10.8)
[2023-08-15 21:33] LABS: Chloride 101 mmol/L (98-107); Potassium 3.8 mmoL/L (3.5-5.1); Sodium 139 mmol/L (136-145)
[2023-08-15 21:36] LABS: Alanine Aminotransferase 46 U/L (12-78); Albumin/Globulin Ratio 1.4 (1.1-1.8); Alkaline Phosphatase 95 U/L (38-126); Anion Gap 13.8 mEq/L (5-15); Aspartate Amino Transferase 39 U/L (17-59); Bilirubin,Total 0.9 mg/dl (0.2-1.3); Blood Urea Nitrogen 13 mg/dl (9-20); Calcium 9.4 mg/dl (8.4-10.2); Carbon Dioxide 28 mmol/L (22.0-30.0); Creatinine Clearance Estimated 145 mL/min (50-200); Estimated Glomerular Filt Rate 99 ml/min (>60); GFR (African American) 120 ML/MIN (>60); Globulin 3.6 g/dL (1.3-3.2); Glucose 119 mg/dl (74-100); Lipase 384 U/L (23-300); Total Protein,Serum 8.6 g/dl (6.3-8.2)
[2023-08-15 22:07] LABS: Microscopic, Urine URINE MICROSCOPIC (MICROSCOPIC)
[2023-08-15 22:17] LABS: Appearance,Urine CLEAR (Clear); Bilirubin,Urine Negative (Negative); Blood, Urine TRACE-I (Negative); Color,Urine YELLOW (Yellow); Glucose,Urine (UA) Negative (Negative); Ketones,Urine Negative (Negative); Leukocyte Esterase,Urine Negative (Negative); Nitrate,Urine Negative (Negative); Protein,Urine Negative (Negative); Specific Gravity, Urine 1.025 (1.005-1.030); Urobilinogen,Urine 0.2 EU/dl (0.2)
[2023-08-15 22:30] VITALS: BP 145/76; PULSE 85; O2SAT 96
--- NOTE | 2023-08-15 22:48 | PC.NURSE ---
Provided patient water at this time. Patient denies nausea at this time.
--- NOTE | 2023-08-15 23:07 | PC.NURSE ---
Patient has drank one bottled water and several saltine crackers without difficulty or new complaints. Provider notified.
[2023-08-15 23:17] LABS: RBC,Urine Occasional #/hpf (0-3); Squamous Epithelial Cell,Urine Occasional #/hpf (0-5)
[2023-08-15 23:23] VITALS: BP 162/79; PULSE 65; RESP 19; TEMP 36.7; O2SAT 97
== END 2023-08-15 23:24 | disposition home or self-care (01) ==
PROVIDERS: Emergency Medicine; Emergency Provider Emergency Medicine; PCP Internal Medicine Adolescent Medicine
DX: R10.11 Right upper quadrant pain (principal); K85.90 Acute pancreatitis without necrosis or infection, unspecified; E11.9 Type 2 diabetes mellitus without complications; I11.9 Hypertensive heart disease without heart failure; I25.10 Atherosclerotic heart disease of native coronary artery without angina pectoris; E78.5 Hyperlipidemia, unspecified; E66.9 Obesity, unspecified; F17.210 Nicotine dependence, cigarettes, uncomplicated; Z79.84 Long term (current) use of oral hypoglycemic drugs
CPT/HCPCS: 74177; 80053; 81001; 83690; 85025; 96361; 96374; 96375; 99285; J0131; J2405; Q9967

== ENCOUNTER 2023-10-17 04:35 | Emergency (ER) | payer MEDICARE, SELFPAY ==
[2023-10-17 04:36] VITALS: BP 214/94; PULSE 65; RESP 20; TEMP 36.4; O2SAT 97; BMI 32.5
--- NOTE | 2023-10-17 04:38 | ECG_ITS ---
APPROVED REPORT Exam: Resting ECG HR:60 bpm ECG Measurements Heart Rate 60 AXES MS 193 P 17 QRSd 78 QRS 80 QT 406 T 40 QTc 406 Conclusion SINUS RHYTHM Previously noted septal changes ABNORMAL ECG UNCONFIRMED REPORT Electronically signed by : Leland New MD 10/18/2023 17:30:33
[2023-10-17 04:40] VITALS: BMI 32.5
--- NOTE | 2023-10-17 04:41 | PC.NURSE ---
in room talking with patient at this time.
--- NOTE | 2023-10-17 04:46 | XR_ITS ---
PROCEDURE INFORMATION: Exam: XR Chest Exam date and time: 10/17/2023 4:48 AM Age: 58 years old Clinical indication: Pain; Angina pectoris; Additional info: Chest tightness TECHNIQUE: Imaging protocol: Radiologic exam of the chest. Views: 1 view. COMPARISON: CT ANGIO CHEST PE PROTOCOL 08/17/2021 1:59 PM FINDINGS: Lungs: Unremarkable. No consolidation. Pleural spaces: Unremarkable. No pleural effusion. No pneumothorax. Heart/Mediastinum: Unremarkable. No cardiomegaly. Bones/joints: Unremarkable. IMPRESSION: No acute findings.
--- NOTE | 2023-10-17 04:46 | [facility].EDGENADL ---
Discharge Plan Disposition Patient Disposition: Home, Self-Care Condition: Good Prescriptions Prescriptions: No Action metformin 500 mg tablet 500 mg PO BID atorvastatin 20 mg tablet 20 mg PO DAILY Anoro Ellipta 62.5-25 mcg/actuation blister with device 1 inh INHALATION DAILY albuterol sulfate [ProAir HFA] 90 mcg/actuation HFA aerosol inhaler 2 puff INHALATION ONCE PRN (Reason: Breathing Problems) carvedilol 6.25 mg tablet 6.25 mg PO BID Patient Comments: TAKE 1 TABLET BY MOUTH TWICE DAILY magnesium oxide 400 mg (241.3 mg magnesium) tablet 400 mg PO DAILY Patient Comments: TAKE 1 TABLET BY MOUTH ONCE DAILY lisinopril 40 mg tablet 40 mg PO DAILY Patient Comments: TAKE 1 TABLET BY MOUTH ONCE DAILY losartan 100 mg tablet 100 mg PO DAILY Patient Comments: TAKE 1 TABLET BY MOUTH ONCE DAILY Referrals Follow up/Referrals: Provider,Referral, [Primary Care Provider] - See instructions Activity Restrictions/Add. Instructions Additional Instructions/Restrictions: You were evaluated in the ER and are appropriate for discharge at this time. Continue taking home medications as prescribed. Please follow-up with your primary care provider in 2 to 3 days for reevaluation. Please return to the emergency department if you develop any new or worsening symptoms or become concerned for your health. Clinical Impressions Clinical Impression: Chest tightness, Hypertension, Intermittent palpitations Discharge ED Provider: Robin Cadet General Adult HPI <Robin Cadet MD - Last Filed: 10/17/23 06:52> General Chief complaint: Chest Pain Stated complaint: Palpitations Time Seen by Provider: 10/17/23 04:46 History of Present Illness HPI narrative: 50-year-old male with history of NSTEMI, hypertension, hyperlipidemia, diabetes, coronary artery disease presents with multiple complaints. He reports that his blood pressure has been high at home. He reports that it is already in the 190s intermittently, sometimes above 200. He denies any headaches or chest pain. He reports that he was having some palpitations and felt like his heart was fluttering this evening which prompted his presentation. He has had multiple changes to his blood pressure medications in the past. He was taken off of lisinopril and put on losartan a few months ago. He said his blood pressure has been lower since that time. Carvedilol was added on within the last week or so. He denies any chest pain or shortness of breath. Reports some mild central chest tightness that has been present since this evening, greater than 8 hrs ago. Reports that he took his blood pressure medications as prescribed. Related Data Home Medications Medication Instructions Recorded Confirmed albuterol sulfate 90 mcg/actuation 2 puff inhalation ONCE PRN 09/15/21 10/17/23 aerosol inhaler (ProAir HFA) Breathing Problems atorvastatin 20 mg tablet 20 mg PO DAILY 09/15/21 10/17/23 metformin 500 mg tablet 500 mg PO BID 09/15/21 10/17/23 umeclidinium 62.5 mcg-vilanterol 1 inh inhalation DAILY 09/15/21 10/17/23 25 mcg/actuation powdr for inhalation (Anoro Ellipta) carvedilol 6.25 mg tablet 6.25 mg PO BID 10/17/23 10/17/23 lisinopril 40 mg tablet 40 mg PO DAILY 10/17/23 10/17/23 losartan 100 mg tablet 100 mg PO DAILY 10/17/23 10/17/23 magnesium oxide 400 mg (241.3 mg 400 mg PO DAILY 10/17/23 10/17/23 magnesium) tablet Allergies Allergy/AdvReac Type Severity Reaction Status Date / Time cefazolin [From Anc] Allergy Rash Verified 09/15/21 11:27 PENICILLIN Allergy Intermediate I-HIVES Uncoded 09/14/17 15:07 [facility] <Robin Cadet MD - Last Filed: 10/17/23 06:52> [facility] Disclaimer: The information contained in this section may have been updated after the patient was seen, as this information can be updated by other users. Medical History (Updated 10/17/23 @ 06:52 by Robin Cadet MD) Abnormal EKG CAD (coronary artery disease) HLD (hyperlipidemia) HTN (hypertension) Obesity (BMI 35.0-39.9 without comorbidity) Tobacco dependence syndrome Social History Smoking Status: Never smoker alcohol intake: never substance use type: denies use current occupational status: employed Travel in the last 8 weeks: Inside the [place] <Robin Cadet MD - Last Filed: 10/17/23 06:52> ROS Obtained: Yes All systems reviewed & no additional complaints except as documented Physical Exam <Robin Cadet MD - Last Filed: 10/17/23 06:52> General General appearance: alert and in no apparent distress Head Head exam: atraumatic and normocephalic Eye Eye exam: Present normal appearance, PERRL and EOMI ENT ENT exam: Present normal oropharynx and normal external ear exam Neck Neck exam: Present normal inspection and full ROM Chest Chest inspection: Present normal inspection and symmetric chest wall rise; Absent tenderness Respiratory Respiratory exam: Present normal lung sounds bilaterally; Absent respiratory distress Cardiovascular Cardiovascular exam: Present regular rate and normal rhythm Abdominal Exam Abdominal exam: Present soft; Absent distention, tenderness or guarding Extremities Exam Extremities exam: Present normal inspection; Absent edema or joint swelling Back Exam Back exam: Present normal inspection; Absent tenderness Neurological Exam Neurological exam: Present alert and oriented X3; Absent motor sensory deficit Psychiatric Psychiatric exam: Present normal affect and normal mood Skin Skin exam: Present warm, dry and normal color Lymphatic Lymphatic Findings: no adenopathy Medical Decision Making <Robin Cadet MD - Last Filed: 10/17/23 06:52> Medical Records Medical records reviewed: Yes I reviewed the patient's medical records. Mukul Inquiry Pt receiving controlled substance: No Mukul was queried for this patient: No Vital Signs: 10/17/23 04:36 10/17/23 05:01 10/17/23 05:31 Temperature 97.6 F Temperature Source Oral Pulse Rate 66 68 Pulse Rate [Radial] 65 Respiratory Rate 20 19 18 Blood Pressure 172/83 H 155/74 H Blood Pressure [Right Arm] 214/94 H Blood Pressure Mean [Right Arm] 134 Blood Pressure Source [Right Arm] Automatic Cuff Blood Pressure Position [Right Arm] Sitting 02 Sat by Pulse Oximetry 97 95 95 Oxygen Delivery Method Room Air 10/17/23 06:00 10/17/23 06:30 Temperature Temperature Source Pulse Rate 51 L 61 Pulse Rate [Radial] Respiratory Rate 20 18 Blood Pressure 155/80 H 156/79 H Blood Pressure [Right Arm] Blood Pressure Mean [Right Arm] Blood Pressure Source [Right Arm] Blood Pressure Position [Right Arm] 02 Sat by Pulse Oximetry 92 L 94 L Oxygen Delivery Method Room Air Room Air Lab Data Lab results reviewed: Yes I reviewed the patient's lab results. Lab Results 10/17/23 04:40: WBC 10.9 H, RBC 5.70, Hgb 17.8, Hct 53.2 H, MCV 93.4, MCH 31.3 H, MCHC 33.5, RDW 13.2, Plt Count 254, MPV 7.2 L, Neut % (Auto) 50.1, Lymph % (Auto) 39.0, [place] % (Auto) 5.9, Eos % (Auto) 3.4, Baso % (Auto) 1.6, Neut # (Auto) 5.5, Lymph # (Auto) 4.3, [place] # (Auto) 0.6, Eos # (Auto) 0.4, Baso # (Auto) 0.2, Sodium 138, Potassium 3.7, Chloride 100, Carbon Dioxide 31 H, Anion Gap 10.7, BUN 13, Creatinine 0.80, Estimated Creat Clear 142, Estimated GFR 99, Est GFR ( Amer) 120, Glucose 108 H, Calcium 9.3, Magnesium 1.8, Total Bilirubin 1.2, AST 44, ALT 36, Alkaline Phosphatase 77, Troponin I < 0.01, NT-Pro-B Natriuret Pep 60.2, Total Protein 8.3 H, Albumin 4.8, Globulin 3.5 H, Albumin/Globulin Ratio 1.4 10/17/23 06:26: Troponin I < 0.01 10/17/23 04:40 10/17/23 04:40 Orders (Tests/Meds): ORDERS Category Date Time Status CXR --portable [XR chest portable] Stat Exams 10/17/23 04:46 Completed BNP [Brain Natriuretic Peptide] Stat Lab 10/17/23 04:40 Completed CBC w/Auto Diff [Complete Blood Count Auto Diff] Stat Lab 10/17/23 04:40 Completed CMP [Comprehensive Metabolic Panel] Stat Lab 10/17/23 04:40 Completed Magnesium Stat Lab 10/17/23 04:40 Completed Troponin I Q3H Lab 10/17/23 04:40 Completed Troponin I Q3H Lab 10/17/23 06:26 Completed HEART Score History (anamnesis): Slightly suspicious ECG: Non-specific disturbance Age: 45-65 years Risk factors: 1-2 risk factors Troponin: </= normal limit HEART Score: 3 Medical Decision Narrative: 58-year-old man with history of hypertension, hyperlipidemia, diabetes presents with reported high blood pressure at home, chest tightness, sensation of heart fluttering at home. Patient had recent blood pressure medication changes. History was obtained via conversation with patient, chart review. On arrival, patient is [afebrile, hemodynamically stable, satting appropriately, alert, oriented x4, GCS 15], moving all extremities spontaneously. Full physical exam performed and significant for no significant physical exam abnormalities. Differential includes but is not limited to medication side effect given recent changes, ACS, arrhythmia, asymptomatic hypertension, hypertensive urgency, hypertensive emergency Workup initiated including EKG CBC CMP BNP troponin magnesium (patient asked to have his magnesium level checked because he was recently started on magnesium supplementation). Patient placed on consulting solution director On re-evaluation, patient [remains afebrile, HD stable.] On my interpretation of consulting solution director, patient remains in sinus rhythm with rates in the 60s. Blood pressure spontaneously improved, in the 170s and 160s systolic without intervention. Laboratory workup independently interpreted by me and significant for initial negative troponin, BNP within normal limits, normal creatinine, no significant electrolyte derangement.. Imaging independently interpreted by me and significant for clear lungs bilaterally without focal opacity. See radiology read for full review of final results. EKG independently interpreted by me and significant for sinus rhythm, rate of 60, no concerning ST changes, possible U waves noted. At 5:15 AM patient was placed in ED observation status for serial cardiac troponins and avoid potentially unnecessary admission. Given duration of patient's symptoms, a 2-hour troponin will suffice. Given patient history, exam and workup, patient's presentation most likely represents asymptomatic hypertension and palpitations. At this time care handed off to oncoming physician pending repeat troponin. <Vishnu Owusu MD - Last Filed: 10/17/23 07:18> Vital Signs: 10/17/23 04:36 10/17/23 05:01 10/17/23 05:31 Temperature 97.6 F Temperature Source Oral Pulse Rate 66 68 Pulse Rate [Radial] 65 Respiratory Rate 20 19 18 Blood Pressure 172/83 H 155/74 H Blood Pressure [Right Arm] 214/94 H Blood Pressure Mean [Right Arm] 134 Blood Pressure Source [Right Arm] Automatic Cuff Blood Pressure Position [Right Arm] Sitting 02 Sat by Pulse Oximetry 97 95 95 Oxygen Delivery Method Room Air 10/17/23 06:00 10/17/23 06:30 Temperature Temperature Source Pulse Rate 51 L 61 Pulse Rate [Radial] Respiratory Rate 20 18 Blood Pressure 155/80 H 156/79 H Blood Pressure [Right Arm] Blood Pressure Mean [Right Arm] Blood Pressure Source [Right Arm] Blood Pressure Position [Right Arm] 02 Sat by Pulse Oximetry 92 L 94 L Oxygen Delivery Method Room Air Room Air Lab Data Lab Results 10/17/23 04:40: WBC 10.9 H, RBC 5.70, Hgb 17.8, Hct 53.2 H, MCV 93.4, MCH 31.3 H, MCHC 33.5, RDW 13.2, Plt Count 254, MPV 7.2 L, Neut % (Auto) 50.1, Lymph % (Auto) 39.0, [place] % (Auto) 5.9, Eos % (Auto) 3.4, Baso % (Auto) 1.6, Neut # (Auto) 5.5, Lymph # (Auto) 4.3, [place] # (Auto) 0.6, Eos # (Auto) 0.4, Baso # (Auto) 0.2, Sodium 138, Potassium 3.7, Chloride 100, Carbon Dioxide 31 H, Anion Gap 10.7, BUN 13, Creatinine 0.80, Estimated Creat Clear 142, Estimated GFR 99, Est GFR ( Amer) 120, Glucose 108 H, Calcium 9.3, Magnesium 1.8, Total Bilirubin 1.2, AST 44, ALT 36, Alkaline Phosphatase 77, Troponin I < 0.01, NT-Pro-B Natriuret Pep 60.2, Total Protein 8.3 H, Albumin 4.8, Globulin 3.5 H, Albumin/Globulin Ratio 1.4 10/17/23 06:26: Troponin I < 0.01 Orders (Tests/Meds): ORDERS Category Date Time Status CXR --portable [XR chest portable] Stat Exams 10/17/23 04:46 Completed BNP [Brain Natriuretic Peptide] Stat Lab 10/17/23 04:40 Completed CBC w/Auto Diff [Complete Blood Count Auto Diff] Stat Lab 10/17/23 04:40 Completed CMP [Comprehensive Metabolic Panel] Stat Lab 10/17/23 04:40 Completed Magnesium Stat Lab 10/17/23 04:40 Completed Troponin I Q3H Lab 10/17/23 04:40 Completed Troponin I Q3H Lab 10/17/23 06:26 Completed HEART Score HEART Score: 3 Medical Decision Narrative: 58-year-old man with history of hypertension, hyperlipidemia, diabetes presents with reported high blood pressure at home, chest tightness, sensation of heart fluttering at home. Patient had recent blood pressure medication changes. History was obtained via conversation with patient, chart review. On arrival, patient is [afebrile, hemodynamically stable, satting appropriately, alert, oriented x4, GCS 15], moving all extremities spontaneously. Full physical exam performed and significant for no significant physical exam abnormalities. Differential includes but is not limited to medication side effect given recent changes, ACS, arrhythmia, asymptomatic hypertension, hypertensive urgency, hypertensive emergency Workup initiated including EKG CBC CMP BNP troponin magnesium (patient asked to have his magnesium level checked because he was recently started on magnesium supplementation). Patient placed on consulting solution director On re-evaluation, patient [remains afebrile, HD stable.] On my interpretation of consulting solution director, patient remains in sinus rhythm with rates in the 60s. Blood pressure spontaneously improved, in the 170s and 160s systolic without intervention. Laboratory workup independently interpreted by me and significant for initial negative troponin, BNP within normal limits, normal creatinine, no significant electrolyte derangement.. Imaging independently interpreted by me and significant for clear lungs bilaterally without focal opacity. See radiology read for full review of final results. EKG independently interpreted by me and significant for sinus rhythm, rate of 60, no concerning ST changes, possible U waves noted. At 5:15 AM patient was placed in ED observation status for serial cardiac troponins and avoid potentially unnecessary admission. Given duration of patient's symptoms, a 2-hour troponin will suffice. Given patient history, exam and workup, patient's presentation most likely represents asymptomatic hypertension and palpitations. At this time care handed off to oncoming physician pending repeat troponin. Owusu: Upon my assumption of care patient is resting comfortably, hemodynamically stable, GCS 15. He is currently asymptomatic. Second troponin is pending at the time of my assumption of care. I have reviewed the other labs performed by the prior physician and agree with his assessment and plan to this point. Repeat troponin was also undetectably low at less than 0.01 no significant delta. Patient is appropriate for discharge at this time. He is comfortable with this plan. Patient was given instructions on symptomatic management, follow up instructions, and return precautions for the emergency department. Patient indicated understanding and was discharged in stable condition. Procedures <Robin Cadet MD - Last Filed: 01/21/24 06:52> Risk/Benefits of Procedure(s) Were Explained: Yes Critical Care <Robin Cadet MD - Last Filed: 10/17/23 06:52> Critical Care Time Critical Care Time: No
[2023-10-17 04:54] LABS: Basophils # 0.2 K/mm3 (0-0.2); Basophils % 1.6 % (0.1-2.0); Chloride 100 mmol/L (98-107); Eosinophils # 0.4 K/mm3 (0.0-0.4); Eosinophils % 3.4 % (0.1-12.0); Hematocrit 53.2 % (42.0-52.0); Hemoglobin 17.8 g/dL (14.1-18.0); Lymphocytes # 4.3 K/mm3 (0.7-4.5); Mean Corpuscular HGB Conc 33.5 g/dL (31.8-35.4); Mean Corpuscular Hemoglobin 31.3 pg (27.0-31.2); Mean Corpuscular Volume 93.4 fl (80-94); Mean Platelet Volume 7.2 fl (7.4-10.4); Monocytes # 0.6 K/mm3 (0.1-1.0); Monocytes % 5.9 % (1.7-9.3); Neutrophils # 5.5 K/mm3 (1.8-7.8); Neutrophils % 50.1 % (37.0-80.0); Platelet Count 254 K/mm3 (142-424); Red Cell Distribution Width 13.2 % (11.5-17.5); Sodium 138 mmol/L (136-145); White Blood Count 10.9 K/mm3 (4.8-10.8)
[2023-10-17 04:55] LABS: Potassium 3.7 mmoL/L (3.5-5.1)
[2023-10-17 04:57] LABS: Alanine Aminotransferase 36 U/L (12-78); Alkaline Phosphatase 77 U/L (38-126); Anion Gap 10.7 mEq/L (5-15); Aspartate Amino Transferase 44 U/L (17-59); Bilirubin,Total 1.2 mg/dl (0.2-1.3); Blood Urea Nitrogen 13 mg/dl (9-20); Carbon Dioxide 31 mmol/L (22.0-30.0); Creatinine Clearance Estimated 142 mL/min (50-200); Estimated Glomerular Filt Rate 99 ml/min (>60); GFR (African American) 120 ML/MIN (>60)
[2023-10-17 04:58] LABS: Albumin Level 4.8 g/dl (3.5-5.0); Albumin/Globulin Ratio 1.4 (1.1-1.8); Calcium 9.3 mg/dl (8.4-10.2); Globulin 3.5 g/dL (1.3-3.2); Glucose 108 mg/dl (74-100); Magnesium 1.8 mg/dl (1.6-2.3); Total Protein,Serum 8.3 g/dl (6.3-8.2)
[2023-10-17 05:01] VITALS: BP 172/83; PULSE 66; RESP 19; O2SAT 95
[2023-10-17 05:11] LABS: NT Pro Brain Natriuretic Pep. 60.2 pg/mL (0-125)
[2023-10-17 05:16] LABS: Troponin I < 0.01 ng/ml (0.00-0.034)
[2023-10-17 05:31] VITALS: BP 155/74; PULSE 68; RESP 18; O2SAT 95
[2023-10-17 06:00] VITALS: BP 155/80; PULSE 51; RESP 20; O2SAT 92
[2023-10-17 06:30] VITALS: BP 156/79; PULSE 61; RESP 18; O2SAT 94
[2023-10-17 07:14] LABS: Troponin I < 0.01 ng/ml (0.00-0.034)
[2023-10-17 07:25] VITALS: BP 146/76; PULSE 63; RESP 15; TEMP 36.7; O2SAT 96
== END 2023-10-17 07:26 | disposition home or self-care (01) ==
PROVIDERS: Emergency Provider Emergency Medicine
DX: R07.9 Chest pain, unspecified (principal); I10 Essential (primary) hypertension; R00.2 Palpitations; E78.5 Hyperlipidemia, unspecified; E11.9 Type 2 diabetes mellitus without complications; I25.10 Atherosclerotic heart disease of native coronary artery without angina pectoris; I25.2 Old myocardial infarction
CPT/HCPCS: 71045; 80053; 83735; 83880; 84484; 85025; 93005; 99285